=== PATIENT | male | born 1950 ===

== ENCOUNTER 2020-11-09 08:14 | Outpatient (CLI) | payer OTHER | END 2020-11-09 08:19 | disposition home or self-care (01) | LOC: SONOGRAMA 08:14 → MAMO-SONO 09:15 | PROVIDERS: ATTEND Internal Medicine Cardiovascular Disease | DX: E04.2 Nontoxic multinodular goiter (principal); E03.8 Other specified hypothyroidism ==

== ENCOUNTER 2020-12-19 08:19 | Outpatient (CLI) | payer OTHER | END 2020-12-19 08:24 | disposition home or self-care (01) | LOC: SONOGRAMA 08:19 | PROVIDERS: ATTEND Pathology Anatomic Pathology & Clinical Pathology | DX: D34 Benign neoplasm of thyroid gland (principal); E04.8 Other specified nontoxic goiter ==

== ENCOUNTER 2021-05-18 08:18 | Outpatient (CLI) | payer OTHER | END 2021-05-18 08:23 | disposition home or self-care (01) | LOC: SONOGRAMA 08:18 | PROVIDERS: ATTEND Specialist | DX: E04.2 Nontoxic multinodular goiter (principal) ==

== ENCOUNTER 2022-04-18 08:08 | Outpatient (CLI) | payer OTHER | END 2022-04-18 08:27 | disposition home or self-care (01) | LOC: RAD 08:08 → EDBD 08:08 → RX STUDY 08:08 | PROVIDERS: ATTEND Otolaryngology | DX: R13.10 Dysphagia, unspecified (principal) ==

== ENCOUNTER 2023-12-12 07:49 | Outpatient (CLI) | payer OTHER | END 2023-12-12 07:59 | disposition home or self-care (01) | LOC: TOM 07:49 | PROVIDERS: ATTEND Otolaryngology | DX: R22.1 Localized swelling, mass and lump, neck (principal) | CPT/HCPCS: 70491; Q9965 ==